=== PATIENT | female | born 2000 | race American Indian/Alaskan Native ===

== ENCOUNTER 2019-06-30 10:25 | Emergency (ER) | payer OTHER, SELFPAY ==
[2019-06-30] MEDS ORDERED: NA CHLORIDE 0.9% 1,000 ML ONE (12:47)
[2019-06-30 12:54] LABS: Urine Blood NEGATIVE (NEG); Urine Glucose NEGATIVE (NEG); Urine Protein NEGATIVE (NEG)
[2019-06-30 13:00] LABS: Absolute Lymphocytes (CBC) 0.2 K/uL (0.7-4.9); Basophils % 0.1 % (0-1.3); Hematocrit 43.1 % (36.0-45.0); MPV 9.7 fL (7.6-11.3); RBC Red Blood Cell Count 4.45 M/uL (3.86-4.86)
[2019-06-30 13:18] LABS: Albumin 4.3 g/dL (3.4-5.0); Bilirubin Direct 0.2 mg/dL (0-0.2); Bilirubin Total 0.6 mg/dL (0.2-1.0); Potassium 3.8 mmol/L (3.5-5.1); Protein, Total 8.1 g/dL (6.4-8.2)
--- NOTE | 2019-06-30 14:09 | EDPHYS ---
Physician Documentation [facility] Name: Judy Hdz Age: 18 yrs Sex: Female : 2000 Arrival Date: 06/30/2019 Time: 10:27 Bed 25 Private MD: ED Physician Nathaniel Colon HPI: 06/30 12:38 This 18 yrs old Other Female presents to ER via Wheelchair with complaints of Vomiting, jmm Passed Out Prior To Arrival. 12:38 The patient presents to the emergency department with nausea, vomiting. Onset: The jmm symptoms/episode began/occurred acutely, at 03:00. Possible causes: sick contacts, by family, brother. The symptoms are aggravated by nothing. The symptoms are alleviated by nothing. This is a 18 year old female with no chronic medical conditions that presents to the ED with complaints of vomiting, nausea. Denies diarrhea. patient states she awoke at 0300 with multiple episodes of vomiting. patient woke up again and went to the restroom and states she then passed out. denies chest pain, denies shortness of breath. . 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 - Social history:: Smoking status: Patient/guardian denies using tobacco. - Ebola Screening: : Patient denies travel to an Ebola-affected area in the 21 days before illness onset. ROS: 12:38 Constitutional: Negative for fever, chills, and weight loss, Cardiovascular: Negative jmm for chest pain, palpitations, and edema, Respiratory: Negative for shortness of breath, cough, wheezing, and pleuritic chest pain. 12:38 Abdomen/GI: Positive for abdominal pain, nausea and vomiting. 12:38 Neuro: Positive for syncope. 12:38 All other systems are negative. Exam: 12:38 Constitutional: This is a well developed, well nourished patient who is awake, alert, jmm and in no acute distress. Head/Face: atraumatic. Eyes: EOMI, no conjunctival erythema appreciated ENT: Moist Mucus Membranes Neck: Trachea midline, Supple Chest/axilla: Normal chest wall appearance and motion. Cardiovascular: Regular rate and rhythm. No edema appreciated Respiratory: Normal respirations, no respiratory distress appreciated 12:38 Back: Normal ROM Skin: General appearance color normal MS/ Extremity: Moves all extremities, no obvious deformities appreciated, no edema noted to the lower extremities Neuro: Awake and alert, normal gait Psych: Behavior is normal, Mood is normal, Patient is cooperative and pleasant 12:38 Abdomen/GI: Inspection: abdomen appears normal, Bowel sounds: normal, Palpation: abdomen is soft and non-tender, in all quadrants. Vital Signs: 10:42 BP 103 / 67; Pulse 83; Resp 18; Temp 98.3(TE); Pulse Ox 99% on R/A; Weight 54.43 kg tw2 (R); Height 5 ft. 3 in. (160.02 cm); Pain 8/10; 12:27 BP 125 / 71; Pulse 72; Resp 16 S; Temp 98.3(O); Pulse Ox 99% on R/A; Pain 0/10; jp3 13:04 BP 110 / 71; Pulse 72; Resp 18 S; Pulse Ox 100% on R/A; ca1 13:42 BP 117 / 70; Pulse 78; Resp 17; Pulse Ox 100% on R/A; ca1 14:17 BP 114 / 68; Pulse 76; Resp 17 S; Pulse Ox 99% on R/A; ca1 10:42 Body Mass Index 21.26 (54.43 kg, 160.02 cm) tw2 MDM: 12:26 Patient medically screened. [facility] 14:04 Data reviewed: vital signs, nurses notes. Counseling: I had a detailed discussion with camila the patient and/or guardian regarding: the historical points, exam findings, and any diagnostic results supporting the discharge/admit diagnosis, lab results, the need for outpatient follow up, to return to the emergency department if symptoms worsen or persist or if there are any questions or concerns that arise at home. ED course: Abdomen is soft and non tender to palpation. I do not suspect an acute intrabdominal process. Patient was given early appendicitis return precautions. Syncope most likely due to a vasovagal reaction. No prolonged qt on ekg. Patient understood and agrees with the plan of care. . 06/30 12:31 Order name: Urine Dipstick--Ancillary (enter results); Complete Time: 13:23 06/30 12:31 Order name: Urine --Ancillary (enter results); Complete Time: 13:23 06/30 12:37 Order name: Basic Metabolic Panel; Complete Time: 13:23 [facility] 06/30 12:37 Order name: CBC with Diff [facility] 06/30 12:37 Order name: Creatinine for Radiology; Complete Time: 13:23 [facility] 06/30 12:37 Order name: Hepatic Function; Complete Time: 13:23 [facility] 06/30 12:37 Order name: Lipase; Complete Time: 13:23 [facility] 06/30 12:37 Order name: IV Saline Lock; Complete Time: 12:44 [facility] 06/30 12:37 Order name: Labs collected and sent; Complete Time: 12:44 [facility] 06/30 12:40 Order name: EKG - Nurse/Tech; Complete Time: 13:04 [facility] 06/30 14:11 Order name: Manual Differential EDMS Administered Medications: 12:48 Drug: NS 0.9% 1000 ml Route: IV; Rate: 1 bolus; Site: left antecubital; ca1 13:42 Follow up: Response: No adverse reaction; IV Status: Completed infusion; IV Intake: ca1 1000ml Disposition: 07/01 06:46 Co-signature as Attending Physician, Nathaniel Colon MD I agree with the assessment and [facility] plan of care. Disposition: 06/30/19 14:09 Discharged to Home. Impression: Vomiting, Syncope and collapse. - Condition is Stable. - Discharge Instructions: Nausea and Vomiting, Adult, Syncope, [id number]. - Prescriptions for Zofran ODT 4 mg Oral tablet,disintegrating - place 1 tablet by TRANSLINGUAL route every 4-6 hours; 20 tablet. - Medication Reconciliation Form, Thank You Letter, Antibiotic Education, Prescription Opioid Use, Work release form form. - Follow up: Private Physician; When: 2 - 3 days; Reason: Recheck today's complaints, Continuance of care, Re-evaluation by your physician. Signatures: Dispatcher [employer] Nathaniel Gardner MD MD cha Mickail, Joel, PA PA jmm Wise, Tara, RN RN tw2 Zahra Miguel RN RN ca1 Corrections: (The following items were deleted from the chart) 06/30 14:20 14:09 06/30/2019 14:09 Discharged to Home. Impression: Vomiting; Syncope and collapse. ca1 Condition is Stable. Forms are Medication Reconciliation Form, Thank You Letter, Antibiotic Education, Prescription Opioid Use. Follow up: Private Physician; When: 2 - 3 days; Reason: Recheck today's complaints, Continuance of care, Re-evaluation by your physician. camila
--- NOTE | 2019-06-30 14:09 | ER ---
Nurse's Notes [facility] Name: Judy Hdz Age: 18 yrs Sex: Female : 2000 Arrival Date: 06/30/2019 Time: 10:27 Bed 25 Private MD: Diagnosis: Vomiting;Syncope and collapse Presentation: 06/30 10:41 Presenting complaint: Patient states: i woke up at 3 am this morning, i was throwing tw2 up, x 2, and having stomach pain, then i went to go use the restroom and i started feeling lightheaded, abdominal pain to LEFT side. Transition of care: patient was not received from another setting of care. Onset of symptoms was June 30, 2019. Risk Assessment: Do you want to hurt yourself or someone else? Patient reports no desire to harm self or others. Initial Sepsis Screen: Does the patient meet any 2 criteria? No. Patient's initial sepsis screen is negative. Does the patient have a suspected source of infection? No. Patient's initial sepsis screen is negative. Care prior to arrival: None. 10:41 Method Of Arrival: Wheelchair tw2 10:41 Acuity: RABIA 3 tw2 Triage Assessment: 10:43 General: Appears in no apparent distress. slender, Behavior is calm, cooperative, tw2 appropriate for age. Pain: Complains of pain in abdomen. GI: Reports nausea, vomiting. 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 - Social history:: Smoking status: Patient/guardian denies using tobacco. - Ebola Screening: : Patient denies travel to an Ebola-affected area in the 21 days before illness onset. Screenin:03 Abuse screen: Denies threats or abuse. Nutritional screening: No deficits noted. tw2 Tuberculosis screening: No symptoms or risk factors identified. Fall Risk None identified. Assessment: 12:27 General: Appears in no apparent distress. comfortable, Behavior is calm, cooperative, ca1 appropriate for age. Pain: Denies pain. Neuro: Level of Consciousness is awake, alert, obeys commands, Oriented to person, place, time, situation, Reports a syncopal episode. Cardiovascular: Heart tones S1 S2 present Capillary refill < 3 seconds Patient's skin is warm and dry. Pulses are all present. Respiratory: Airway is patent Respiratory effort is even, unlabored, Respiratory pattern is regular, symmetrical, Breath sounds are clear bilaterally. GI: Abdomen is flat, non-distended, Bowel sounds present X 4 quads. Abd is soft and non tender X 4 quads. Reports nausea, vomiting, since 0300 today. : No deficits noted. No signs and/or symptoms were reported regarding the genitourinary system. EENT: No deficits noted. No signs and/or symptoms were reported regarding the EENT system. Derm: Skin is intact, is healthy with good turgor, Skin is pink, warm \T\ dry. Musculoskeletal: Circulation, motion, and sensation intact. Capillary refill < 3 seconds, Range of motion: intact in all extremities. 13:04 Reassessment: Patient appears in no apparent distress at this time. Patient and/or ca1 family updated on plan of care and expected duration. Pain level reassessed. Patient is alert, oriented x 3, equal unlabored respirations, skin warm/dry/pink. 14:00 Reassessment: Patient appears in no apparent distress at this time. Patient and/or ca1 family updated on plan of care and expected duration. Pain level reassessed. Patient is alert, oriented x 3, equal unlabored respirations, skin warm/dry/pink. Vital Signs: 10:42 BP 103 / 67; Pulse 83; Resp 18; Temp 98.3(TE); Pulse Ox 99% on R/A; Weight 54.43 kg tw2 (R); Height 5 ft. 3 in. (160.02 cm); Pain 8/10; 12:27 BP 125 / 71; Pulse 72; Resp 16 S; Temp 98.3(O); Pulse Ox 99% on R/A; Pain 0/10; jp3 13:04 BP 110 / 71; Pulse 72; Resp 18 S; Pulse Ox 100% on R/A; ca1 13:42 BP 117 / 70; Pulse 78; Resp 17; Pulse Ox 100% on R/A; ca1 14:17 BP 114 / 68; Pulse 76; Resp 17 S; Pulse Ox 99% on R/A; ca1 10:42 Body Mass Index 21.26 (54.43 kg, 160.02 cm) tw2 ED Course: 10:27 Patient arrived in ED. as 10:42 Triage completed. tw2 10:42 Arm band placed on. tw2 12:05 Bed in low position. Call light in reach. Adult w/ patient. tw2 12:18 Zahra Miguel, ROSANA is Primary Nurse. ca1 12:18 Dimitrios Aviles PA is PHCP. [facility] 12:18 Nathaniel Colon MD is Attending Physician. [facility] 12:18 Urine collected: clean catch specimen, clear, key colored. Patient maintains SpO2 jp3 saturation greater than 95% on room air. 12:27 Patient has correct armband on for positive identification. Placed in gown. Cardiac ca1 monitor on. Pulse ox on. NIBP on. Warm blanket given. 12:27 No provider procedures requiring assistance completed. ca1 12:38 Urine Dipstick--Ancillary (enter results) Sent. jp3 12:38 Urine --Ancillary (enter results) Sent. jp3 12:52 Initial lab(s) drawn, by sc, sent to lab. Inserted saline lock: 22 gauge in left jp3 antecubital area, using aseptic technique. Blood collected. 13:05 EKG done, by data acquisition technician. reviewed by Dimitrios GRULLON. [facility] 14:17 IV discontinued, intact, bleeding controlled, No redness/swelling at site. Pressure ca1 dressing applied. Administered Medications: 12:48 Drug: NS 0.9% 1000 ml Route: IV; Rate: 1 bolus; Site: left antecubital; ca1 13:42 Follow up: Response: No adverse reaction; IV Status: Completed infusion; IV Intake: ca1 1000ml Intake: 13:42 IV: 1000ml; Total: 1000ml. ca1 Outcome: 14:09 Discharge ordered by . camila 14:17 Discharged to home ambulatory, with significant other. ca1 14:17 Condition: stable 14:17 Discharge instructions given to patient, Instructed on discharge instructions, follow up and referral plans. medication usage, Demonstrated understanding of instructions, follow-up care, medications, Prescriptions given X 1. 14:20 Patient left the ED. ca1 Signatures: Dimitrios Aviles PA PA Sydnie Briones Tara, RN RN tw2 Diana Valadez sm3 Rob Hay jp3 Zahra Miguel RN RN ca1 Corrections: (The following items were deleted from the chart) 12:29 12:27 BP 125 / 71; Pulse 72bpm; Resp 16bpm; Spontaneous; Pulse Ox 99% RA; Temp 98.3F jp3 Oral; jp3
[2019-06-30 15:04] LABS: Blood Morphology Comment NOT SEEN (NOT SEEN); Platelet Estimate ADEQ
[2019-06-30 15:10] VITALS: TEMP 98.3
[2019-06-30 15:16] VITALS: BP 114/68; O2SAT 99
--- NOTE | 2019-07-01 06:55 | EKG ---
Test Date: 2019-06-30 Test Time: 12:53:52 Clinical Data Coordinator: LORA MEASUREMENT RESULTS: Intervals: Rate: 71 SD: 142 QRSD: 86 QT: 402 QTc: 436 [place]: P: 86 SD: 142 QRS: 58 T: 66 INTERPRETIVE STATEMENTS: Normal sinus rhythm Normal ECG Compared to ECG 07/28/2018 11:33:36 No significant changes Electronically Signed On 07-01-19 06:55:06 CDT by Bhanu Grajeda
== END 2019-06-30 14:20 | disposition home or self-care (01) ==
LOC: ER 10:25
DX: R55 Syncope and collapse (principal)
CPT/HCPCS: 36415; 80048; 80076; 81003; 81025; 83690; 85025; 93005; 96360; 99285; J7030